=== PATIENT | male | born 1965 | race Caucasian/White ===

== ENCOUNTER → 2020-04-19 | Outpatient (CLI) | payer OTHER ==
[2020-04-19 12:05] LABS: BASO # 0.1 x10^3/uL (0.0-0.2); BASO % 1 % (0-3); EOS # 0.1 x10^3/uL (0.0-0.7); EOS % 1 % (0-3); HEMATOCRIT 45.3 % (39.0-53.0); HEMOGLOBIN 15.4 g/dL (13.0-17.5); LYMPH # 1.6 x10^3/uL (1.0-4.8); LYMPH % 23 % (24-48); MEAN CORPUSCULAR HEMOGLOBIN 31 pg (25-35); MEAN CORPUSCULAR HGB CONC 34 g/dL (31-37); MEAN CORPUSCULAR VOLUME 91 fL (79-100); MONO # 0.7 x10^3/uL (0.0-1.1); MONO % 11 % (0-9); NEUT # 4.5 x10^3/uL (1.8-7.7); NEUT % 65 % (31-73); PLATELET COUNT 362 x10^3/uL (140-400); RED BLOOD COUNT 4.99 x10^6/uL (4.30-5.70); RED CELL DISTRIBUTION WIDTH 13.1 % (11.5-14.5)
[2020-04-19 12:18] LABS: GFR 77.9; POTASSIUM 4.3 mmol/L (3.5-5.1)
== END ==
LOC: LAB 11:41
PROVIDERS: ATTEND Internal Medicine Pulmonary Disease
DX: R06.02 Shortness of breath (principal)
CPT/HCPCS: 36415; 80048; 85025; 85379

== ENCOUNTER → 2020-04-30 | Outpatient (CLI) | payer OTHER ==
[~2020-04-30] MED LIST: IOHEXOL 300 MG/ML 100ML VIAL. IV ONE
--- NOTE | 2020-04-30 17:29 | RAD ---
CT chest with contrast dated 04/30/2020. No comparison available. Clinical data indication: Shortness of breath. History of Covid. TECHNIQUE: Contiguous axial imaging the chest performed following the intravenous administration of 75 cc Omnipa que 300. One or more of the following individualized dose reduction techniques were utilized for this examinat ion: 1. Automated exposure control 2. Adjustment of the mA and/or kV according to patient size 3. Use of iterative reconstruction technique. FINDINGS: Heart size is within normal limits. No pericardial effusion. Mild ectasia of the ascending thoracic a evaristo measuring 4 cm transverse. No mediastinal, hilar or axillary lymphadenopathy. Thyroid gland unre markable. Central airways are patent. There is a noncalcified pulmonary nodule in the superior segment right lo wer lobe medially on image 22 that measures 8 mm in size. Tiny noncalcified subpleural nodule at the left apex posteriorly on image 8 measures about 3 mm. No consolidation or pleural effusion. No signif icant scarring.. Diffuse low-density of the liver, compatible with fatty infiltration. No apparent mass. Biliary tree normal in caliber. Gallbladder unremarkable. Spleen is normal in size. Bone windows show no acute findings. Multilevel spondylosis. IMPRESSION: 1. No acute abnormality of chest. 2. There noncalcified pulmonary nodules in the right lower lobe and left upper lobe, nonspecific. Sug gest follow-up imaging in 6 months to ensure stability 3. Mild ectasia of the ascending thoracic aorta. 4. Mild fatty infiltration of the liver. Electronically signed by: Abiodun York MD (04/30/2020 5:26 PM) [id number]
== END ==
LOC: CT 16:01
PROVIDERS: ATTEND Internal Medicine Pulmonary Disease
DX: I77.810 Thoracic aortic ectasia (principal); R91.8 Other nonspecific abnormal finding of lung field; K76.0 Fatty (change of) liver, not elsewhere classified; M47.814 Spondylosis without myelopathy or radiculopathy, thoracic region; Z86.16 Personal history of COVID-19
CPT/HCPCS: 71260; Q9967

== ENCOUNTER → 2020-05-04 | Outpatient (CLI) | payer OTHER ==
--- NOTE | 2020-05-05 13:04 | CARD ---
MR#: [id number] Date of Study: 05/04/2020 Ordering Physician: KOMAL BELTRAN, Referring Physician: KOMAL BELTRAN, Tech: Arcelia Barrientos, [facility] APPROVED REPORT EXAM: Two-dimensional and M-mode echocardiogram with Doppler and color Doppler. Other Information Quality : AverageHR: 63bpm INDICATION Dyspnea 2D DIMENSIONS Left Atrium(2D)3.0 (1.6-4.0cm)IVSd1.2 (0.7-1.1cm) Aortic Root(2D)3.8 (2.0-3.7cm)LVDd5.9 (3.9-5.9cm) LVOT Diameter2.1 (1.8-2.4cm)PWd1.1 (0.7-1.1cm) LVDs3.2 (2.5-4.0cm)FS (%) 46.3 % SV132.2 ml Aortic Valve AoV Peak Ga.115.5cm/sAoV VTI21.7cm AO Peak GR.5.3mmHgLVOT Peak Ga.104.1cm/s LVOT VTI 21.74cmAO Mean GR.3mmHg JUDY (VMAX)2.88tv1MRQ (VTI)3.55cm2 Mitral Valve MV E Jufxrxiw89.4cm/sMV DECEL [id number] MV A Hjjmgxdd24.9cm/sMV E Mean Gr.1mmHg MV RUL33gpQ/A Ratio0.8 MVA (PHT)2.41cm2 TDI E/Lateral E'5.1E/Medial E'6.2 Pulmonary Valve PV Peak Anvvxavu97.6cm/sPV Peak Grad.3mmHg Tricuspid Valve TR P. Wpiprwde923dw/sRAP GHQUYJJX1ydLl TR Peak Gr.54kiJyJQHM73zqCz Pulmonary Vein S1 Xphfldtr08.6cm/sD2 Ihuwrelv86.0cm/s PVa [id number] LEFT VENTRICLE The left ventricle is normal size. There is mild concentric left ventricular hypertrophy. The left ve ntricular systolic function is normal and the ejection fraction is within normal range. The Ejection Fraction is 55-60%. Septal motion consistent with a possible conduction abnormality. Transmitral Dopp ler flow pattern is Grade I-abnormal relaxation pattern. RIGHT VENTRICLE The right ventricle is normal size. There is normal right ventricular wall thickness. The right ventr icular systolic function is normal. ATRIA The left atrium size is normal. The right atrium size is normal. The interatrial septum is intact wit h no evidence for an atrial septal defect or patent foramen ovale as noted on 2-D or Doppler imaging. AORTIC VALVE The aortic valve is normal in structure and function. Doppler and Color Flow revealed trace aortic re gurgitation. There is no significant aortic valvular stenosis. Calculated aortic valve area is 3.49 c m2 with maximum pressure gradient of 7 mmHg and mean pressure gradient of 4 mmHg. MITRAL VALVE The mitral valve is normal in structure and function. There is no evidence of mitral valve prolapse. There is no mitral valve stenosis. Doppler and Color-flow revealed trace mitral regurgitation. TRICUSPID VALVE The tricuspid valve is normal in structure and function. Doppler and Color Flow revealed trace tricus pid regurgitation with an estimated PAP of 20 mmHg. There is no tricuspid valve stenosis. PULMONIC VALVE The pulmonic valve is not well visualized. Doppler and Color Flow revealed trace pulmonic valvular re gurgitation. GREAT VESSELS The aortic root is borderline dilated measuring 3.8 cm. The IVC is normal in size and collapses >50% with inspiration. PERICARDIAL EFFUSION There is no evidence of significant pericardial effusion. Critical Notification Critical Value: No <Conclusion> The left ventricle is normal size. The left ventricular systolic function is normal and the ejection fraction is within normal range. The Ejection Fraction is 55-60%. Septal motion consistent with a possible conduction abnormality. There is mild concentric left ventricular hypertrophy. Doppler and Color Flow revealed trace aortic regurgitation. There is no significant aortic valvular stenosis. Doppler and Color-flow revealed trace mitral regurgitation. Doppler and Color Flow revealed trace tricuspid regurgitation with an estimated PAP of 20 mmHg. The aortic root is borderline dilated measuring 3.8 cm. Signed by : Jason Delgado MD Electronically Approved : 05/05/2020 13:04:14
== END ==
LOC: ECHO 16:02
PROVIDERS: ATTEND Internal Medicine Pulmonary Disease
DX: I51.7 Cardiomegaly (principal); R06.02 Shortness of breath
CPT/HCPCS: 93306

== ENCOUNTER → 2020-05-19 | Outpatient (CLI) | payer OTHER ==
[~2020-05-19] MED LIST changes: -IOHEXOL 300 MG/ML 100ML VIAL. IV ONE; +ZOLPIDEM 5 MG TABLET. PO ONE
--- NOTE | 2020-05-20 09:28 | SLEEP ---
DATE OF STUDY: 05/19/2020 SLEEP STUDY REFERRING PHYSICIAN: LAZARO Lerma The patient is a 54-year-old who weighs 248 pounds with a BMI of 33. The patient had sleep study about 5 years ago and was positive for obstructive sleep apnea. The patient gained 50 pounds since then. The patient was referred for another split night study done at [facility]. During the night study, the patient spent 424 minutes in bed and slept for 358 minutes with a sleep efficiency of 84%. Sleep latency was 7 minutes with a REM latency of 184 minutes. Sleep architecture showed increased stage 1 and stage 2 sleep, normal slow wave and normal REM sleep. During the initial diagnostic portion of the study, the patient slept for 66 minutes. During that time, the patient had no obstructive or mixed apneas. There was 1 central apnea and 47 hypopneas. The patient's AHI was 44 per hour. Supine AHI 44 per hour. REM sleep was not seen during the diagnostic portion. EKG monitoring revealed an average heart rate of 77 beats per minute, no sustained arrhythmias observed. Nocturnal oximetry study revealed a mean oxygen saturation of 92% with the lowest of 83%. A 3.5% of the time oxygen saturation remained between 80% and 89%. PLMS were seen at index of 17 per hour and 3 per hour caused EEG arousals. The patient met the criteria for CPAP initiation. It was started at 5 cm water and titrated up to 9 cm water. At the final pressure, the patient slept for 83 minutes. The patient had supine as well as REM sleep. The patient's AHI was reduced to 2 per hour and oxygen saturation remained above 91%. The patient used medium size nasal pillows. IMPRESSION: 1. Severe obstructive sleep apnea at an AHI of 44 per hour. 2. No clinically significant nocturnal hypoxia. 3. Mild PLMS. RECOMMENDATIONS: 1. CPAP at 9 cm water completely eliminated the patient's sleep apnea and should be used on a nightly basis. 2. Follow up in 4-6 weeks to assess compliance with CPAP and to document clinical improvement. 3. Weight loss is strongly advised. 4. Avoid [employer] depressants. 5. Caution regarding driving until symptoms of sleep apnea resolve with the use of CPAP. 6. PLMS does not need to be treated unless the patient has symptoms of restless legs during the day. MALINI MARK MD DR: RAJANI/abdirahman JOB#: [id number] / [id number] PRUDENCE Feng
== END ==
LOC: RT 18:56
PROVIDERS: ATTEND Internal Medicine Critical Care Medicine
DX: G47.33 Obstructive sleep apnea (adult) (pediatric) (principal)
CPT/HCPCS: 95810